=== PATIENT | female | born 1935 | race Caucasian/White ===

== ENCOUNTER 2016-07-23 21:23 | Observation (INO) | payer MEDICARE, BC ==
[~2016-07-23] VITALS: Ht 142.2 cm; Wt 51.7 kg
[2016-07-23 22:33] LABS: HEMOGLOBIN 12.5 gm/dl (12.3-15.3); RED BLOOD COUNT 3.95 M/UL (4.00-5.10); WHITE BLOOD COUNT 9.9 K/UL (4.5-11.0)
[2016-07-23 22:53] LABS: BUN/CREATININE RATIO 21 (0-10)
[2016-07-24] MEDS ORDERED: ZOCOR20 MG PO (03:14)
[2016-07-24] MEDS ORDERED: METOPROLOL TART25 MG PO (03:14)
[2016-07-24] MEDS ORDERED: NEURONTIN 100100 MG PO (03:14)
[2016-07-24] MEDS ORDERED: MUCINEX600 MG PO (03:15)
[2016-07-24] MEDS ORDERED: MIRALAX17 GM PO (03:15)
[2016-07-24] MEDS ORDERED: NORVASC 5 MG TAB5 MG PO (03:15)
[2016-07-24] MEDS ORDERED: VALIUM 5 MG TAB5 MG PO (03:16)
[2016-07-24] MEDS ORDERED: VITAMIN D1000 UNIT PO (03:17)
[2016-07-24] MEDS ORDERED: NITRO PO (03:17)
[2016-07-24] MEDS ORDERED: ADULT LOW DOSE81 MG PO (03:18)
[2016-07-24] MEDS ORDERED: FLAX OIL1000 MG PO (03:18)
[2016-07-24] MEDS ORDERED: VITAMIN E400 UNI4 PO (03:19)
[2016-07-24] MEDS ORDERED: SINGULAIR10 MG PO (03:19)
[2016-07-24] MEDS ORDERED: RANEXA500 MG PO (03:19)
[2016-07-24] MEDS ORDERED: MELOXICAM7.5 MG PO (03:20)
[2016-07-24] MEDS ORDERED: ELAVIL 10 MG TA10 MG PO (03:20)
[2016-07-24 09:21] LABS: BUN/CREATININE RATIO 27 (0-10)
[2016-07-24] MEDS ORDERED: NITROSTAT 0.40.4 MG SL (17:47)
== END 2016-07-24 19:30 | disposition home or self-care (01) ==
LOC: ER1 21:23 → MED SURG 4 23:45 → ZEROF 23:45 → MED SURG 4 07-24 02:59
PROVIDERS: Emergency Medicine; ADMIT Internal Medicine
DX: R07.89 Other chest pain (principal); M79.1 Myalgia; E87.1 Hypo-osmolality and hyponatremia; I25.10 Atherosclerotic heart disease of native coronary artery without angina pectoris; I10 Essential (primary) hypertension; J44.9 Chronic obstructive pulmonary disease, unspecified; E78.5 Hyperlipidemia, unspecified; E11.9 Type 2 diabetes mellitus without complications; K21.9 Gastro-esophageal reflux disease without esophagitis; F41.9 Anxiety disorder, unspecified; F17.210 Nicotine dependence, cigarettes, uncomplicated; Z95.1 Presence of aortocoronary bypass graft; Z79.82 Long term (current) use of aspirin; Z79.899 Other long term (current) drug therapy; Z95.5 Presence of coronary angioplasty implant and graft; Z90.710 Acquired absence of both cervix and uterus; Z88.2 Allergy status to sulfonamides; Z88.1 Allergy status to other antibiotic agents
CPT/HCPCS: ECHO; 36415; 71010; 78452; 80048; 80053; 80061; 82550; 82553; 82962; 83036; 83874; 83880; 84443; 84484; 85025; 93005; 93017; 93306; 96372; 99285; A9502; G0378; J2785; J7030

== ENCOUNTER → 2016-07-29 | Outpatient (CLI) | payer MEDICARE, BC ==
[~2016-07-29] MED LIST: ADULT LOW DOSE81 MG PO; ELAVIL 10 MG TA10 MG PO; FLAX OIL1000 MG PO; MELOXICAM7.5 MG PO; METOPROLOL TART25 MG PO; MIRALAX17 GM PO; MUCINEX600 MG PO; NEURONTIN 100100 MG PO; NITRO PO; NITROSTAT 0.40.4 MG SL; NORVASC 5 MG TAB5 MG PO; RANEXA500 MG PO; SINGULAIR10 MG PO; VALIUM 5 MG TAB5 MG PO; VITAMIN D1000 UNIT PO; VITAMIN E400 UNI4 PO; ZOCOR20 MG PO
== END ==
LOC: MAMO 12:59
DX: Z12.31 Encounter for screening mammogram for malignant neoplasm of breast (principal)
CPT/HCPCS: G0202

== ENCOUNTER → 2021-07-25 | Outpatient (CLI) | payer MEDICARE, BC ==
[~2021-07-25] MED LIST changes: +ALBUTEROL2.5 MG/3 M INH; +AMOXICILLIN500 M1 PO; +CALCIUM 1,0001 EACH PO; +CENTRUM SILVER1 EAC1 PO; +MAGOX 400400 MG PO; +NORVASC2.5 MG PO; +ULTRAM50 MG PO; +VENTOLIN HFA 66.7 GM INH; +VITAMIN D-40400 UNIT PO; -VITAMIN D1000 UNIT PO; +ZOCOR 40 MG TAB40 MG PO
== END ==
LOC: HEART 5 08:18
DX: R06.02 Shortness of breath (principal); I27.20 Pulmonary hypertension, unspecified; I08.1 Rheumatic disorders of both mitral and tricuspid valves
CPT/HCPCS: 93306

== ENCOUNTER → 2021-09-11 | Outpatient (CLI) | payer MEDICARE, BC | LOC: EXRD 11:29 | DX: J98.4 Other disorders of lung (principal); R91.8 Other nonspecific abnormal finding of lung field | CPT/HCPCS: 71046 ==